=== PATIENT | female | born 1960 | race Caucasian/White ===

== ENCOUNTER → 2021-10-05 | Outpatient (CLI) | payer BC ==
[2021-10-05 10:46] LABS: HEMOGLOBIN 14.4 gm/dl (12.3-15.3); RED BLOOD COUNT 4.81 M/UL (4.00-5.10); WHITE BLOOD COUNT 8.3 K/UL (4.5-11.0)
[2021-10-06 08:13] LABS: ALBUMIN 4.8 g/dL (3.8-4.8); BILIRUBIN, DIRECT 0.14 mg/dL (0.00-0.40); BILIRUBIN, TOTAL 0.4 mg/dL (0.0-1.2); CALCIUM, SERUM 9.7 mg/dL (8.7-10.3); CREATININE, SERUM 0.7 mg/dL (0.57-1.00); POTASSIUM, SERUM 4.3 mmol/L (3.5-5.2); PROTEIN, TOTAL 7.2 g/dL (6.0-8.5)
== END ==
LOC: LAB 09:47
PROVIDERS: Physician Assistant
DX: R11.2 Nausea with vomiting, unspecified (principal)
CPT/HCPCS: 36415; 80048; 80076; 82150; 83690; 85025

== ENCOUNTER → 2022-03-13 | Outpatient (CLI) | payer BC | LOC: LAB 10:46 | DX: J20.9 Acute bronchitis, unspecified (principal); Z20.822 Contact with and (suspected) exposure to COVID-19 | CPT/HCPCS: U0003 ==